=== PATIENT | male | born 1980 | race Caucasian/White ===

== ENCOUNTER 2022-07-27 12:09 | Day surgery (SDC) | payer OTHER ==
[2022-07-27] MEDS ORDERED: Decadron 4 MG INJ IV ONE (12:10)
[2022-07-27] MEDS ORDERED: LIDOCAINE HCL 2% 100 MG/5 ML IJ ONE (12:10)
[2022-07-27] MEDS ORDERED: DIPRIVAN 200 MG/20 ML IV ONE (13:43)
[2022-07-27] MEDS ORDERED: Versed 2 MG/2 ML Injection ONE (13:45)
[2022-07-27] MEDS ORDERED: Lactated Ringers 1,000 ML IV ONE (14:22)
--- NOTE | 2022-07-27 15:24 | XRAY ---
Indication: Right C2-C4 MBB. Intraoperative fluoroscopy provided for 19 seconds. 2 digital spot image submitted for interpretation demonstrates posterior needle tips projecting over the expected right C2-C4 nerve roots. Correlate with intraoperative findings/report.
--- NOTE | 2022-07-27 16:43 | XRAY ---
19 seconds of fluoroscopy was used in surgery for a right C2-C4 MBB.
== END 2022-07-27 14:25 | disposition home or self-care (01) ==
LOC: SDC-PAIN 12:09
PROVIDERS: ATTEND Psychiatry & Neurology Pain Medicine
DX: M47.812 Spondylosis without myelopathy or radiculopathy, cervical region (principal); Z79.899 Other long term (current) drug therapy
CPT/HCPCS: 64490; 64491; 72040; 77002; J1100; J2250; J2704

== ENCOUNTER 2022-09-14 12:24 | Day surgery (SDC) | payer OTHER ==
[2022-09-14] MEDS ORDERED: BUPIVACAINE 0.5% VIAL IJ ONE (12:25)
[2022-09-14] MEDS ORDERED: DIPRIVAN 200 MG/20 ML IV ONE (13:43)
[2022-09-14] MEDS ORDERED: Xylocaine-Mpf 2% 5 Ml Vial ONE (13:44)
[2022-09-14] MEDS ORDERED: Lactated Ringers 1,000 ML IV ONE (15:07)
--- NOTE | 2022-09-14 19:10 | XRAY ---
Indication: Right C2-C4 MBB. Intraoperative fluoroscopy provided for 15 seconds. 2 digital spot image submitted for interpretation demonstrates posterior needle tips projecting over the expected right C2-C4 nerve roots. Correlate with intraoperative findings/report.
--- NOTE | 2022-09-14 19:25 | XRAY ---
15 seconds of fluoroscopy was used in surgery for a right C2-C4 MBB.
== END 2022-09-14 14:15 | disposition home or self-care (01) ==
LOC: SDC-PAIN 12:24
PROVIDERS: ATTEND Psychiatry & Neurology Pain Medicine
DX: M47.812 Spondylosis without myelopathy or radiculopathy, cervical region (principal); Z79.899 Other long term (current) drug therapy
CPT/HCPCS: 64490; 64491; 72040; 77002; J2704

== ENCOUNTER 2022-10-12 12:48 | Day surgery (SDC) | payer OTHER ==
[2022-10-12] MEDS ORDERED: LIDOCAINE HCL 1% 50 MG/5 ML VL PF IJ ONE (12:49)
[2022-10-12] MEDS ORDERED: Decadron 4 MG INJ IV ONE (12:49)
[2022-10-12] MEDS ORDERED: BUPIVACAINE 0.5% VIAL IJ ONE (12:49)
[2022-10-12] MEDS ORDERED: DIPRIVAN 200 MG/20 ML IV ONE ×2 (15:06→15:10)
[2022-10-12] MEDS ORDERED: Xylocaine-Mpf 2% 5 Ml Vial ONE (15:08)
[2022-10-12] MEDS ORDERED: Versed 2 MG/2 ML Injection ONE (15:10)
[2022-10-12] MEDS ORDERED: Lactated Ringers 1,000 ML IV ONE (16:15)
--- NOTE | 2022-10-12 16:58 | XRAY ---
Indication: Right C2-C4 RFA. Intraoperative fluoroscopy provided for 26 seconds. 2 digital spot image submitted for interpretation demonstrates posterior needle tips projecting over the expected right C2-C4 nerve roots. Correlate with intraoperative findings/report.
--- NOTE | 2022-10-12 17:13 | XRAY ---
26 seconds of fluoroscopy was used in surgery for a right C2-C4 RFA.
== END 2022-10-12 15:40 | disposition home or self-care (01) ==
LOC: SDC-PAIN 12:48
PROVIDERS: ATTEND Psychiatry & Neurology Pain Medicine
DX: M47.812 Spondylosis without myelopathy or radiculopathy, cervical region (principal); Z79.899 Other long term (current) drug therapy
CPT/HCPCS: 64633; 64634; 72040; 77002; J1100; J2001; J2250; J2704